=== PATIENT | male | born 1990 | race Caucasian/White ===

== ENCOUNTER 2019-09-10 10:02 | Day surgery (SDC) | payer OTHER ==
[2019-09-10] MEDS ORDERED: fentaNYL 100 MCG/2 ML VIAL IVP ONE (10:03)
[2019-09-10] MEDS ORDERED: PROPOFOL 200 MG/20 ML VIAL IVP ONE (10:03)
[2019-09-10] MEDS ORDERED: MIDAZOLAM 2 MG/2 ML VIAL IVP ONE (10:03)
[2019-09-10] MEDS ORDERED: ROCURONIUM 50 MG/5 ML VIAL IVP ONE (10:03)
[2019-09-10] MEDS ORDERED: cefTRIAXone 2 GM VIAL ONE (10:10)
[2019-09-10] MEDS ORDERED: LACTATED RINGERS 1,000 ML IV ONE ×2 (10:21→16:05)
--- NOTE | 2019-09-10 11:04 | ANESTHESIA ---
Pre-Anesthesia VS, & Labs - Diagnosis right pectoralis major muscle tear - Procedure right pectoralis major muscle tear Vital Signs: Temp Pulse Resp BP Pulse Ox 37.0 C 70 16 120/84 H 100 09/10/19 10:26 09/10/19 10:26 09/10/19 10:26 09/10/19 10:26 09/10/19 10:26 Height 5 ft 11 in Weight (kg) 90 kg - NPO >8 hours Home Medications and Allergies Home Medications: Ambulatory Orders No Known Home Medications 09/08/19 No Known Home Medications 09/08/19 Allergies/Adverse Reactions: Allergies Allergy/AdvReac Type Severity Reaction Status Date / Time No Known Drug Allergies Allergy Verified 09/10/19 10:35 Anes History & Medical History - Anesthetic History Family history of Anesthesia Complications: Denies Family history of Malignant Hyperthermia: Denies - Medical History Cardiovascular: reports: None Pulmonary: reports: None Gastrointestinal: reports: None Urinary: reports: None Neuro: reports: None Musculoskeletal: reports: None, Other Endocrine/Autoimmune: reports: None Blood Disorders: reports: None Skin: reports: None Smoking Status: Never smoker Psychosocial: reports: Alcohol (Weekly 3-5 drinks) Exam General: Alert, Oriented x3, Cooperative, No acute distress Dental: WNL Mouth Openin Fingerbreadth Neck Mobility: Normal Mallampati classification: I Thyromental Distance: greater than 6 cm Mental/Cognitive Status: Alert/Oriented X3, Normal for patient Plan Anesthesia Type: General Consent for Procedure(s) Verified and Reviewed: Yes Code Status: Attempt Resuscitation ASA classification: 1-Healthy patient Is this case an emergency?: No
[2019-09-10] MEDS ORDERED: BUPIVACAINE 0.5% PF 30 ML VIAL ONE (12:35)
--- NOTE | 2019-09-10 14:24 | ANESTHESIA PROCEDURE NOTE ---
Diagnosis: right pectoralis tear Procedure: right ISB Consent for Procedure(s) Verified and Reviewed: Yes Height and Weight: Height 5 ft 11 in Weight (kg) 90 kg Vital Signs: Temp Pulse Resp BP Pulse Ox 37.0 C 70 16 120/84 H 100 09/10/19 10:26 09/10/19 10:26 09/10/19 10:26 09/10/19 10:26 09/10/19 10:26 Allergies No Known Drug Allergies Allergy (Verified 09/10/19 10:35) Requesting Provider: Ishan Location: Right brachial plexus ASA classification: 1-Healthy patient Is this case an emergency?: No Anes. Monitoring and Equipment: Non-invasive BP, Pulse oximetery Anes. Procedure Start Time: 13:10 Anes. Procedure Stop Time: 13:19 Procedure Notes: After time out, patient's right neck was prepped with chlorohexadine. A total of 2mg versed and 100mcg fentanyl was given for patient comfort. The right brachial plexus was imaged and a 22G blunted stimiplex needle was advanced towards the nerve sheath. A total of 30 ml of 0.5% ropivicaine with 4mg decacdron was injected around the nerve sheath with adequate spread noted. Ultrasound image was saved to US hard drive. Full evaluation is pending. It was noted the patient's skin was flushed/red where chloroprep was placed. Patient had no other symptoms and prep was washed off. Surgeon notified and will use betadine to prep in OR.
[2019-09-10] MEDS ORDERED: BUPIVACAINE 0.5% PF 30 ML VIAL INFIL ONE (16:41)
[2019-09-10] MEDS ORDERED: ONDANSETRON 4 MG/2 ML VIAL IVP PRN (16:56)
[2019-09-10] MEDS ORDERED: oxyCODONE 5 MG TABLET PO PRN (16:56)
--- NOTE | 2019-09-10 17:17 | OPERATIVE REPORT ---
Operative Report - General Procedure Date: 09/10/19 - Procedure Note Estimated Blood Loss (mL): 100 - Other Other Information/Narrative: Date of Procedure: September 10, 2019 Planned Procedure: Right pectoralis major tendon repair Pre-op diagnosis: Right sternal head pectoralis tendon rupture Procedure performed: Right pectoralis major tendon repair Post-op diagnosis: Right sternal head pectoralis tendon Primary Surgeon: AMIRA RICH Secondary Surgeon: RISA SIMMONS Anesthesia: General plus regional interscalene block EBL: 100 ml IMPLANTS: Arthrex pec button x3 Post-op Plan: Sling for 4 to 6 weeks, okay to start gentle pendulums and active elbow and wrist range of motion on postop day 1 or 2 Anticipate isometric exercises at week 6 and isotonic exercises week 8, expect return to gym activity week 12-16,, with gradual ramp up back to prior level of function over the ensuing 6 to 8 weeks INDICATION FOR SURGERY: 29-year-old [id number] male who sustained an injury to his right chest while snowboarding. He fell and had forced abduction of his arm, with immediate pain and pulling sensation. He had extensive axillary and chest wall bruising, MRI of the chest demonstrated a tear of the sternal head of the pectoralis major. We discussed the nature of this injury as well as treatment options including operative and nonoperative management, based on his age and activity level, operative intervention was recommended. We discussed the expected postop time line. He elected to proceed with operative repair of the tendon. Risks of the surgery were discussed including pain, bleeding, infection, damage to nearby structures, implant complications, stiffness, need for further surgeries, DVT, PE, stroke, and even . Questions answered and informed consent was signed. PROCEDURE IN DETAIL: The patient was met in the preoperative holding on the day of the procedure. Operative chest was signed. Consent was verified. He desired to proceed. A regional block was placed by anesthesia. The patient was brought to the operating room and surrendered to anesthesia. Once general anesthesia was obtained they were placed in a modified beach chair position with bony prominences well-padded. They were then prepped and draped in the standard sterile fashion. Incision was marked out along from the coracoid process inferiorly, more medially than a standard deltopectoral incision, but more lateral than a direct axillary incision. The entire shoulder was enveloped in Ioban. A surgical timeout was held to confirm the patient procedure, identity, procedure, laterality, allergies, images, and antibiotics. All were in agreement we proceeded. An incision in line with a marked path was made sharply through the skin and subcutaneous tissues with a 10 blade, followed by Bovie electrocautery and the subcutaneous tissues for hemostasis. Generous medial and lateral flaps were developed. The deltopectoral interval was identified and developed. The cephalic vein was identified and taken laterally with the deltoid. The clavicular head was intact as expected. As we got deeper, the scarred tendon of the sternal head came into view this had formed adhesions with the surrounding tissues. The tendon was gently dissected free from the surrounding tissues and mobilized. 3 fiber tapes were then whipstitched in Krakw fashion from superior to inferior along the tendon. These were used to further retract the tendon and free up any adhesions. The interval under the deltoid was developed and a bent Hohmann was placed under the deltoid and around the lateral border of the humerus. The attachment of the clavicular head was visualized, and the footprint of the sternal head was prepared just superior to it. We used a kelley elevator to clear the soft tissue off the bone followed by gentle crosshatching using a small osteotome to improve the surface area for tendon attachment. Once satisfied, we drilled 3 holes just lateral to the long head of the biceps tendon. These were made approximately 1 cm apart and slightly offset from each other in the longitudinal plane. The tape was then passed through the buttons, and the buttons were inserted from inferior to superior and partially tensioned to ensure good sliding of the suture. Once all 3 buttons have been passed, the suture limbs were then sequentially tightened and the tendon was reduced down to the bone nicely. This was palpated found to have good reapproximation, and the sutures were tied. The arm was taken through gentle range of motion, with good adherence of the tendon to at least 45 degrees of abduction. The wound was then irrigated and the deep fascial layer was closed using 0 Vicryl interrupted. Following repair of this layer the wound was again irrigated, and the subcutaneous tissues were closed using 2-0 Vicryl in interrupted fashion, and the skin was closed with a running subcuticular 3-0 Monocryl. Dermabond was applied and Steri-Strips were placed. An additional 10 mL of half percent Marcaine was injected into the elroy-incisional soft tissues. 4 x 4 gauze and and ABD were place and secured with tape. The drapes were taken down, the arm was placed in a sling. Anesthesia was reversed, he was awakened and transferred to the recovery room in stable condition.
[2019-09-10] MEDS ORDERED: ONDANSETRON 4 MG/2 ML VIAL ONE (17:28)
[2019-09-10] MEDS: PROMETHAZINE 25 MG/1 ML VIAL ONE ×2 (17:38→17:44)
[2019-09-10 18:46] VITALS: BP 114/58
== END 2019-09-10 19:15 | disposition home or self-care (01) ==
LOC: SDS 10:02 → MS2 18:11 → SDS 19:15
PROVIDERS: ATTEND Orthopaedic Surgery
PROC: 0LQ30ZZ Repair Right Upper Arm Tendon, Open Approach (ICD-10-PCS; principal; 2019-09-10 11:30)
DX: S46.811A Strain of other muscles, fascia and tendons at shoulder and upper arm level, right arm, initial encounter (principal)